=== PATIENT | female | born 1970 ===

== ENCOUNTER 2023-11-01 08:00 | Outpatient (CLI) | payer MEDICAID | END 2023-11-01 23:59 | disposition home or self-care (01) | LOC: LAB.N 08:00 | PROVIDERS: ATTEND Family Medicine | DX: J02.9 Acute pharyngitis, unspecified (principal) | CPT/HCPCS: 87070 ==

== ENCOUNTER 2024-01-04 12:24 | Emergency (ER) | payer MEDICAID ==
--- NOTE | 2024-01-04 14:01 | XRAY Report ---
PROCEDURE: Knee 4+V RT INDICATIONS: Trauma TECHNIQUE: 4 views of the knee(s) were acquired. COMPARISON: None. FINDINGS: Bones: Mild to moderate degenerative changes. No acute displaced fracture or dislocation. Joint space loss is seen especially in the medial compartment. Slight lateral patellar tilt. Soft tissues: Small joint effusion. IMPRESSION: Mild to moderate degenerative changes, especially in the medial and patellofemoral compartments. Slig ht lateral patellar tilt and small joint effusion. If there is high concern for further derangement, consider MRI evaluation. Reviewed by: Bill Blount MD on 01/04/2024 2:00 PM PDT Approved by: Bill Blount MD on 01/04/2024 2:00 PM PDT Station ID: [id number]
--- NOTE | 2024-01-04 15:43 | ED Physician Documentation ---
PD HPI LOWER EXT INJURY - Stated complaint Stated Complaint: RT KNEE PX,SWELLING - Chief complaint Chief Complaint: Ext Problem - History obtained from History obtained from: Patient - Additional information Additional information: She has chronic knee pain. Has been seen by orthopedics in the past but not in this area. Has had injections in the knee in the past. Without specific injury over the last 3 days has developed more significant right knee pain especially medially. She is still able to walk and bear weight. No fevers. PD PAST MEDICAL HISTORY - Past Medical History Past Medical History: No Other Past Medical History: HIV - Past Surgical History Past Surgical History: Yes General: Cholecystectomy Ortho: Carpal Tunnel surgery - Present Medications Home Medications: Ambulatory Orders Medication Instructions Recorded Confirmed HYDROcod/ACETAM 5/325 [Mauldin 5/325] 1 - 2 tab PO Q6H PRN #15 tablet 01/04/24 - Allergies Allergies/Adverse Reactions: Allergies Allergy/AdvReac Type Severity Reaction Status Date / Time No Known Drug Allergies Allergy Verified 01/04/24 12:41 - Social History Does the pt smoke?: No Smoking Status: Never smoker Does the pt drink ETOH?: No Does the pt have substance abuse?: No - Immunizations Immunizations are current?: No PD ED PE NORMAL - Vitals Vital signs reviewed: Yes - General General: Alert and oriented X 3, No acute distress - Extremities Extremities: Other (Clinically there is no effusion of the right knee. She has full range of motion. Mild diffuse tenderness without ligamentous laxity. Positive grind testing.) - Neuro Neuro: Alert and oriented X 3 Results - Vitals Vitals: Vital Signs - 24 hr 01/04/24 12:41 Temperature 36.8 C Heart Rate 77 Respiratory 16 Rate Blood Pressure 122/70 O2 Saturation 99 - Rads (name of study) Right knee x-ray demonstrates mild to moderate degenerative changes with slight lateral patellar tilt and small effusion Relevant Findings:: Final report received, EMP independent interpretation of test PD Medical Decision Making - ED course ED course: She has chronic knee pain with actually fairly significant arthritic changes for age on x-ray. No injury. Declined a knee immobilizer. Needed something for pain. Departure - Departure Disposition: 01 Home, Self Care Clinical Impression: Arthritis of knee Condition: Good Record reviewed to determine appropriate education?: Yes Instructions: Osteoarthritis Common Sites Follow-Up: Orthopedic Care [Provider Group] Prescriptions: HYDROcod/ACETAM 5/325 [Mauldin 5/325] 1 - 2 tab PO Q6H PRN #15 tablet PRN Reason: Pain Comments: I sent your prescription electronically to the [facility] in [place]. As discussed, you should follow-up on the referral that is already pending and try to follow-up with the orthopedic surgeons. Return for any worsening symptoms. You can continue the Aleve along with the other pain reliever, but do not take Tylenol at the same time. Return for new or worsening symptoms. I am prescribing a short course of narcotic pain medication for you. These are potentially dangerous and addictive medications that should be used carefully. These medications may constipate you. Take an [id number] stool softener (docusate) twice daily with plenty of water while taking these medications. If you go 24 hours without a bowel movement, take [id number] miralax, per package instructions. Do not drink or drive while taking these medications. If you received narcotic or sedating medications while in the emergency department, do not drive for 24 hours. Store this medication in a safe, secure place and out of reach of children. It is a violation of federal law to give or sell this medication to another person or to use in a manner other than prescribed. The ED will not refill narcotic prescriptions, including prescriptions lost or stolen. To dispose of unwanted medications: 1. [facility] provides a drop box for medication in pill form only (no liquids) 8:00 am to 4:30 p.m. Sunday-Sunday in the lobby of the [facility], [address] [place] [address]. Empty pills into ziplock bag before disposal. Call [phone] for information. 2.[employer] is a free service available to all [place] residents. Go to [email or web address]/ Note that many narcotic pain relievers also contain Tylenol/acetaminophen. Please ensure that your total dose of acetaminophen from all sources does not exceed 3 g (3000 mg) per day. Forms: PCP List, Activity restrictions
[2024-01-04 15:55] VITALS: BP 120/72; O2SAT 98
== END 2024-01-04 15:47 | disposition home or self-care (01) ==
LOC: ED 12:24
DX: M17.11 Unilateral primary osteoarthritis, right knee (principal); M25.461 Effusion, right knee; G89.29 Other chronic pain
CPT/HCPCS: 99283